=== PATIENT | male | born 1955 | race Hispanic/Latino ===

== ENCOUNTER 2018-04-01 09:32 | Day surgery (SDC) | payer OTHER ==
[~2018-04-01 09:32] MED LIST: ANCEF/STERILE WATER 2 GM/20 ML IV NR; DILAUDID IV PRN; LACTATED RINGERS 1,000 ML IV SCH; VERSED IV NR; ZOFRAN IV PRN
--- NOTE | 2018-04-01 11:13 | Anesthesia Day of Surgery ---
Anesthesia Day of Surgery - Day of Surgery Patient Examined: Yes Patient H&P Reviewed: Yes Patient is NPO: Yes
--- NOTE | 2018-04-01 11:13 | Anesthesia Consultation ---
Anesthesia Consult and Med Hx Date of service: 04/01/18 - Airway Anesthetic Teeth Evaluation: Good ROM Head & Neck: Adequate Mental/Hyoid Distance: Adequate Mallampati Class: Class II Intubation Access Assessment: Probably Good - Pulmonary Exam CTA: Yes - Cardiac Exam Cardiac Exam: RRR - Pre-Operative Health Status ASA Pre-Surgery Classification: ASA2 Proposed Anesthetic Plan: General - Central Nervous System Hx Psychiatric Problems: No - Other Systems Hx Alcohol Use: Yes (OCCAS) Hx Substance Use: No
[2018-04-01] MEDS ORDERED: MARCAINE 0.25% INFILTRATI ONE ×2 (11:21→11:36)
[2018-04-01] MEDS ORDERED: XYLOCAINE MPF 2% ONE (11:25)
[2018-04-01] MEDS ORDERED: DIPRIVAN 10 MG/ML IV ONE (11:25)
[2018-04-01] MEDS ORDERED: DILAUDID ONE ×2 (11:26→12:43)
[2018-04-01] MEDS ORDERED: ZEMURON IV ONE (11:27)
[2018-04-01] MEDS ORDERED: DECADRON ONE (11:27)
[2018-04-01] MEDS ORDERED: ZOFRAN ONE (11:28)
[2018-04-01] MEDS ORDERED: NACL 0.9% IR ONE (11:36)
--- NOTE | 2018-04-01 13:24 | Post Operative Note ---
Pre-op diagnosis: Left Inguinal hernia Post-op diagnosis: same Findings: Both direct and indirect hernia- Left : Rt no hernia evident Procedure: Laparoscopic mesh repair Left ing hernia Anesthesia: GETA Surgeon: FRANK JEAN Estimated blood loss: minimal Pathology: none Condition: stable Disposition: PACU
--- NOTE | 2018-04-01 13:26 | Discharge Summary ---
Short Stay Discharge Plan Weight Bearing Status: Full Weight Bearing Diet: regular Wound: open to air Follow up with: [facility] [Other] - 7 Days Prescriptions: oxyCODONE /ACETAMINOPHEN [Percocet 5/325] 1 tab PO Q4HR PRN #20 tab PRN Reason: Pain , Severe (7-10) traMADol [Ultram 50 MG tab] 50 mg PO Q6HR PRN #20 tablet PRN Reason: Pain
--- NOTE | 2018-04-01 13:33 | Post Anesthesia Evaluation ---
- Post Anesthesia Evaluation Patient Participated: Yes Airway Patent: Yes Stable Respiratory Function: Yes Nausea/Vomiting: No Temp > 96.8F: Yes Pain Manageable: Yes Adequeate Hydration: Yes Anesthesia Complications: No
--- NOTE | 2018-04-01 13:48 | Operative Report ---
PREOPERATIVE DIAGNOSIS: Left inguinal hernia. POSTOPERATIVE DIAGNOSIS: Left direct and indirect inguinal hernia. OPERATIVE PROCEDURE: Laparoscopic mesh repair of left inguinal hernia. ANESTHESIA: General endotracheal. SURGEON: Hardik Murguia MD IMPLANT: Hernia mesh. SPECIMENS: None. ESTIMATED BLOOD LOSS: Minimal. 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 FINDINGS: The patient had excessive amount of adipose tissue in the groin and knee at the parietal peritoneum. He had a pantaloon-type hernia showing a direct defect and an indirect defect. Fair amount of preperitoneal fat as herniated. No herniation of bowel loops or omentum evident. On the right side, no hernia is evident. Visualized part of the sigmoid colon and the small bowel loops and both lobes of the liver appeared normal. No abdominal wall hernia evident. DESCRIPTION OF PROCEDURE: After satisfactory induction of general endotracheal anesthesia, abdomen was prepped and draped. A Queen catheter was passed prior to that which drained clear urine. A supraumbilical incision was made in a transverse fashion and a Veress needle was inserted into the peritoneal cavity. After adequate carbon dioxide insufflation to 13 mmHg, 11-mm nonbladed trocar was inserted. Through this, a 10-mm 30-degree angle scope was placed and the lateral 5-mm ports were placed in the lateral border of the rectus muscle. The patient was placed in head down and right side down position. Peritoneal flap was developed adjacent to the left-sided 5-mm port and was extended medially to the urachal ligament. This was divided inferiorly. Minimal amount of oozing was noted from the area, which was controlled by cautery. Cortez's ligament was identified and was well delineated from the adjacent structures along its entire length. The herniated preperitoneal fat from the direct hernia was reduced and laterally a pocket was created. The indirect hernial sac was reduced completely with the reduction of the preperitoneal fat. Gonadal vessels and vas deferens were identified and the pocket was created proximally for several centimeters beyond the confluence of these structures. After checking for hemostasis, which was quite adequate, 3 inches x 5 inches Parietex mesh was inserted. This was straightened out to cover the defect with adequate overlap in all directions. It was anchored to the Cortez's ligament inferiorly using ProTackers. Superiorly and laterally, more ProTackers were used. The peritonealization was done using more ProTackers and desufflation was done and all the trocars were removed under direct visualization. No bleeding was noted. Fascia was approximated with 0 Vicryl sutures and all the incisions were closed with 4-0 Monocryl sutures. He tolerated the procedure well. Queen catheter was removed after draining clear urine and was transferred to postanesthesia care unit. JOB# [id number] MNN/NTS
[2018-04-01 14:31] VITALS: BP 144/79
== END 2018-04-01 15:05 | disposition home or self-care (01) ==
LOC: OR 09:32
PROVIDERS: ATTEND Surgery
DX: K40.90 Unilateral inguinal hernia, without obstruction or gangrene, not specified as recurrent (principal); Z72.89 Other problems related to lifestyle; Z79.899 Other long term (current) drug therapy; Z98.890 Other specified postprocedural states
CPT/HCPCS: 49650; C1781; J0690; J1100; J1170; J2250; J2405; J2704; J7120